=== PATIENT | female | born 1955 | race Caucasian/White ===

== ENCOUNTER 2025-05-11 06:31 | Day surgery (SDC) | payer MEDICARE, BC ==
[2025-05-10 15:45] LABS: MEAN PLATELET VOLUME 8.3 FL (7.4-10.4); PRE OP HEMATOCRIT 39.1 % (35.0-45.0); PRE OP HEMOGLOBIN 13.2 g/dL (12.0-16.0); PRE OP PLATELET COUNT 342 X10'3 (140-440); PRE OP WHITE BLOOD COUNT 4.5 10'3 (4.8-10.8); RED CELL DISTRIBUTION WIDTH 13.7 % (11.5-14.5)
--- NOTE | 2025-05-10 15:53 | ELECTROCARDIOGRAPH REPORT ---
[facility] Test Date: 2025-05-10 Test Time: 15:51:41 Pat Name: MEAGAN LOAIZA Department: [facility]-PRE-OP Patient ID: [id number] Room: Gender: F Blueprint Maker: victorino : 1955 Requested By: ANNABELLA MALDONADO Order Number: [id number] Reading MD: Dr. KISHAN Umaña Measurements Intervals [place] Rate: 62 P: 52 MD: 152 QRS: -13 QRSD: 94 T: 47 QT: 450 QTc: 457 Interpretive Statements Sinus rhythm Probable left atrial enlargement Probable left ventricular hypertrophy Anterior Q waves, possibly due to LVH ST elevation, consider inferior injury Electronically Signed On 05-10-2025 16:06:[address] KISHAN Umaña Please click the below link to view image of tracing.
[2025-05-10 16:03] LABS: CREATININE 0.86 MG/DL (0.40-0.90); PRE OP ALT 12 U/L (30-65); PRE OP ANION GAP 10 (8-16); PRE OP AST 15 U/L (10-37); PRE OP BILIRUB, TOTAL 0.5 MG/DL (0.0-1.0); PRE OP GLUCOSE 87 MG/DL (70-104); PRE OP SODIUM 142 MMOL/L (135-145); TOTAL CARBON DIOXIDE 25.9 MMOL/L (24-32); eGFR 65 ML/MIN
[2025-05-10 16:13] LABS: PRE OP POTASSIUM 3.3 MMOL/L (3.4-5.1)
[~2025-05-11] VITALS: Ht 160 cm; Wt 65.8 kg
[2025-05-11] VITALS (7 sets, daily range): BP systolic 114–147; BP diastolic 48–95; PULSE 59–76; RESP 12–21; TEMP 98.4; O2SAT 96–100
[2025-05-11] MEDS: ceFAZolin 2gm/dext,iso 50mL 50 ML IV ONE (05:30)
[~2025-05-11 06:31] MED LIST: CHOL200077 PO; CITA40TA17 PO; CYAN250010 PO
[2025-05-11] MEDS: vancomycin/NS 1 GM ADD-VANTAGE 250 ML IV ONE (07:19)
[2025-05-11] MEDS: ringers solution, lacted 1,000 ML IV SCH (07:19)
[2025-05-11] MEDS ORDERED: BUPIVAcaine 2.5mg/ml inj 50ml vial (contains preservative) ONE (08:05)
[2025-05-11] MEDS ORDERED: cloNIDine hcl/PF 100mcg/ml inj ONE (08:20)
[2025-05-11] MEDS ORDERED: fentaNYL/PF 50MCG/1 ML 2ML syringe ONE (08:23)
[2025-05-11] MEDS ORDERED: midazolam 1 mg/ML 2ml injection ONE (08:24)
[2025-05-11] MEDS ORDERED: propofol inj 20 ML IV ONE (08:24)
[2025-05-11] MEDS ORDERED: ROPIVAcaine 0.5% (5mg/ml) 30ml vial ONE (08:26)
[2025-05-11] MEDS ORDERED: morphine 4 MG/ML inj SYRINge IV PRN ×2 (09:55)
[2025-05-11] MEDS ORDERED: ondansetron/PF 4mg/2ml inj IV PRN (09:55)
[2025-05-11] MEDS ORDERED: hydrALAZINE 20mg/ml inj. IV PRN (09:55)
[2025-05-11] MEDS ORDERED: ringers solution, lacted 1,000 ML IV SCH (09:55)
[2025-05-11] MEDS ORDERED: acetaminophen 1,000mg/100ml IV 100 ML IV PRN (09:55)
[2025-05-11] MEDS ORDERED: labetalol 20mg/4ml (5mg/ml) syringe IV PRN (09:55)
[2025-05-11] MEDS ORDERED: HYDROmorphone/PF 0.2 MG/ML SYRINGE IV PRN ×2 (09:55)
[2025-05-11] MEDS ORDERED: dexamethasone sod phosphate 4mg/ml inj. ONE (11:05)
[2025-05-11] MEDS ORDERED: ondansetron/PF 4mg/2ml inj ONE (11:05)
--- NOTE | 2025-05-11 12:06 | OPERATIVE REPORT ---
DATE OF SURGERY: 05/11/2025 DICTATING PHYSICIAN: Carl Gannon MD PREOPERATIVE DIAGNOSES: Right ankle fracture, bimalleolar medial malleolus being an avulsion fracture, nondisplaced and partial thickness tear of the peroneus brevis tendon requiring repair. POSTOPERATIVE DIAGNOSES: Right ankle fracture, bimalleolar medial malleolus being an avulsion fracture, nondisplaced and partial thickness tear of the peroneus brevis tendon requiring repair. PROCEDURE PERFORMED: Open reduction and internal fixation of the lateral malleolus with plate and screws and repair of the peroneus brevis tendon. SURGEON: Carl Gannon MD DRAG DOWN: No pediatric assistant. ANESTHESIA: General anesthesia with a popliteal nerve block. ANESTHESIOLOGIST: Dr. Juarez. BLOOD LOSS: 100 mL. FINDINGS: The patient was found to have a displaced externally rotated distal fibular fracture with mild subluxation of the talus laterally, nondisplaced tip of the medial malleolus fracture without avulsion-type fracture, not repairable, and a partial-thickness tear of the peroneus brevis at the fracture site. IMPLANTS USED: A 4-hole right fibular plate with 2.5 and 3.5 locking screws and 1 compression screw. SPECIMENS REMOVED: None. DESCRIPTION OF PROCEDURE: The patient was taken to the operating room after I had obtained informed consent and signed her right lower extremity. She was given prophylactic antibiotics per protocol, taken to the operating room and given a general anesthetic, placed in a supine position on the OR table. The left leg was placed in an SCD device. The right leg was placed in a well-padded upper thigh tourniquet. The right foot and leg were now prepped and draped in the usual sterile orthopedic fashion. A surgical timeout was taken per protocol and the case was begun. Esmarch was used for exsanguination. The tourniquet was insufflated. A lateral incision was made from the tip of the lateral malleolus extending approximately some 6 inches. Dissection was then carried down through the soft tissue to the fibula where the periosteum was elevated to reveal the fracture which had been displaced laterally. There is an oblique-type spiral fracture starting at the joint line extending proximally and posteriorly. There is a large spike posteriorly. During the exposure, it became apparent that there was a partial-thickness tear of 50% of the peroneus brevis tendon at the fracture site there. This was repaired after the stabilization of the fibula was accomplished. After dissection was completed, the fracture was mobilized requiring rongeurs and curette to remove early callus formation as this fracture was over 3 weeks old. This allowed the reduction to be completed. Bone clamps were applied. The reduction was anatomic and this was confirmed on C-arm fluoroscopy intraoperatively. A 4-hole locking plate was placed, temporarily pinned in place and checked on x-ray to make sure that this was the proper fit and adequate reduction. Compression screw was placed against the plate and then locking screws were placed both proximally for 3.5 locking screws and then distally for 2.5 locking screws. The distal 2.5 locking screws were all single cortex screws as they were in the distal aspect of the fibula below the joint line. After this was accomplished, it was tested to make sure that it was stable and then confirmed on C-arm fluoroscopy in AP, oblique, and lateral views to be in anatomic position and well fixated and screws without penetration into the joint. This area was then copiously irrigated with antiseptic solution in the IrriSept. Hemostasis was checked with electrocautery. Repair of the peroneus brevis tendon was accomplished with [id number] sutures of #3-0 Vicryl and closure of the periosteum was accomplished with 0 Vicryl. Closure of the subcuticular and subcutaneous tissues was accomplished with 2-0 Vicryl and the skin was closed with skin ginger and sealed with Dermabond skin glue. Inspection of the lateral malleolus was accomplished and visualized closely at multiple angles under fluoroscopic guidance. This fracture was found to have some comminution. It was quite diminutive and it was at the tip of the lateral malleolus, not amenable or improved with fixation. The ankle was stable on clinical exam, so this was not fixated. Sterile dressings were applied and a Bomoseen splint was applied by the [employer]. The tourniquet had been released. Good distal pulses and capillary refill returned to the foot. There were no apparent perioperative complications. Needle and sponge counts were reported to be correct. Carl Gannon MD TID: [id number] RECEIPT: [id number] DANIELLE/ASHLEIGH
== END 2025-05-11 12:06 | disposition home or self-care (01) ==
LOC: PAS 06:31
PROVIDERS: ATTEND Orthopaedic Surgery
DX: S82.841A Displaced bimalleolar fracture of right lower leg, initial encounter for closed fracture (principal); S86.311A Strain of muscle(s) and tendon(s) of peroneal muscle group at lower leg level, right leg, initial encounter; G89.18 Other acute postprocedural pain; F41.9 Anxiety disorder, unspecified; Z79.899 Other long term (current) drug therapy; Z90.49 Acquired absence of other specified parts of digestive tract; Z98.891 History of uterine scar from previous surgery; Z98.890 Other specified postprocedural states; X58.XXXA Exposure to other specified factors, initial encounter; Y93.89 Activity, other specified; Y92.89 Other specified places as the place of occurrence of the external cause; Y99.8 Other external cause status
CPT/HCPCS: 27658; 27792; 36415; 64447; 64450; 73600; 76942; 80053; 82948; 85025; 93005; A4215; A4618; A6402; A6449; A7000; C1713; J0735; J1100; J2250; J2405; J2704; J2795; J3010; J3373; J3490; J7030; J7120; Z7506; Z7508; Z7512; Z7610; 76000